=== PATIENT | female | born 1960 | race Caucasian/White ===

== ENCOUNTER → 2020-04-02 | Outpatient (CLI) | payer OTHER ==
[~2020-04-02] VITALS: Ht 170.2 cm; Wt 54.4 kg
== END ==
LOC: OPSV 09:44
DX: M05.79 Rheumatoid arthritis with rheumatoid factor of multiple sites without organ or systems involvement (principal)
CPT/HCPCS: 96365; J1602

== ENCOUNTER → 2020-05-24 | Outpatient (CLI) | payer OTHER ==
[~2020-05-24] VITALS: Ht 170.2 cm; Wt 55.3 kg
== END ==
LOC: OPSV 09:38
DX: M05.79 Rheumatoid arthritis with rheumatoid factor of multiple sites without organ or systems involvement (principal)
CPT/HCPCS: 96365; J1602

== ENCOUNTER → 2020-08-02 | Outpatient (CLI) | payer OTHER ==
[~2020-08-02] VITALS: Ht 170.2 cm; Wt 55.3 kg
== END ==
LOC: OPSV 08:31
DX: M05.79 Rheumatoid arthritis with rheumatoid factor of multiple sites without organ or systems involvement (principal)
CPT/HCPCS: 96365; J1602

== ENCOUNTER → 2020-09-27 | Outpatient (CLI) | payer OTHER ==
[~2020-09-27] VITALS: Ht 170.2 cm; Wt 55.3 kg
== END ==
LOC: OPSV 09:00
DX: M05.79 Rheumatoid arthritis with rheumatoid factor of multiple sites without organ or systems involvement (principal)
CPT/HCPCS: 96365; J1602

== ENCOUNTER → 2020-12-10 | Outpatient (CLI) | payer OTHER ==
[~2020-12-10] VITALS: Ht 170.2 cm; Wt 55.3 kg
== END ==
LOC: OPSV 11:43
DX: M05.79 Rheumatoid arthritis with rheumatoid factor of multiple sites without organ or systems involvement (principal)
CPT/HCPCS: 96365; J0129

== ENCOUNTER → 2020-12-24 | Outpatient (CLI) | payer OTHER ==
[~2020-12-24] VITALS: Ht 170.2 cm; Wt 55.3 kg
== END ==
LOC: OPSV 12:00
DX: M05.79 Rheumatoid arthritis with rheumatoid factor of multiple sites without organ or systems involvement (principal)
CPT/HCPCS: 96365; J0129

== ENCOUNTER → 2021-01-07 | Outpatient (CLI) | payer OTHER | LOC: OPSV 11:43 | DX: M05.79 Rheumatoid arthritis with rheumatoid factor of multiple sites without organ or systems involvement (principal) | CPT/HCPCS: 96365; 96375; J0129; J2930 ==

== ENCOUNTER → 2021-01-21 | Outpatient (CLI) | payer OTHER ==
[~2021-01-21] VITALS: Ht 170.2 cm; Wt 55.3 kg
== END ==
LOC: OPSV 10:32
DX: M05.79 Rheumatoid arthritis with rheumatoid factor of multiple sites without organ or systems involvement (principal)
CPT/HCPCS: G0463

== ENCOUNTER → 2021-02-04 | Outpatient (CLI) | payer OTHER ==
[~2021-02-04] VITALS: Ht 170.2 cm; Wt 55.3 kg
== END ==
LOC: OPSV 09:45
DX: M05.79 Rheumatoid arthritis with rheumatoid factor of multiple sites without organ or systems involvement (principal)
CPT/HCPCS: 96365; 96375; J0129; J2930

== ENCOUNTER → 2021-03-04 | Outpatient (CLI) | payer OTHER ==
[~2021-03-04] VITALS: Ht 170.2 cm; Wt 55.3 kg
== END ==
LOC: OPSV 09:46
DX: M05.79 Rheumatoid arthritis with rheumatoid factor of multiple sites without organ or systems involvement (principal)
CPT/HCPCS: 96365; 96375; J0129; J2930

== ENCOUNTER → 2021-04-01 | Outpatient (CLI) | payer OTHER ==
[~2021-04-01] VITALS: Ht 170.2 cm; Wt 55.3 kg
== END ==
LOC: OPSV 09:41
DX: M05.79 Rheumatoid arthritis with rheumatoid factor of multiple sites without organ or systems involvement (principal)
CPT/HCPCS: 96365; 96375; J0129; J2930

== ENCOUNTER → 2021-06-03 | Outpatient (CLI) | payer OTHER ==
[~2021-06-03] VITALS: Ht 170.2 cm; Wt 55.3 kg
== END ==
LOC: OPSV 09:44
DX: M05.79 Rheumatoid arthritis with rheumatoid factor of multiple sites without organ or systems involvement (principal)
CPT/HCPCS: 96365; 96375; J0129; J2930

== ENCOUNTER → 2021-07-01 | Outpatient (CLI) | payer OTHER ==
[~2021-07-01] VITALS: Ht 170.2 cm; Wt 55.3 kg
== END ==
LOC: OPSV 10:00
DX: M05.79 Rheumatoid arthritis with rheumatoid factor of multiple sites without organ or systems involvement (principal)
CPT/HCPCS: 96365; 96375; J0129; J2930

== ENCOUNTER → 2021-07-29 | Outpatient (CLI) | payer OTHER ==
[~2021-07-29] VITALS: Ht 170.2 cm; Wt 55.3 kg
== END ==
LOC: OPSV 13:14
DX: M05.79 Rheumatoid arthritis with rheumatoid factor of multiple sites without organ or systems involvement (principal)
CPT/HCPCS: 96365; 96375; J0129; J2930

== ENCOUNTER → 2021-08-27 | Outpatient (CLI) | payer OTHER ==
[~2021-08-27] VITALS: Ht 170.2 cm; Wt 55.3 kg
== END ==
LOC: OPSV 10:00
DX: M05.79 Rheumatoid arthritis with rheumatoid factor of multiple sites without organ or systems involvement (principal)
CPT/HCPCS: 96365; 96375; J0129; J2930

== ENCOUNTER → 2021-09-24 | Outpatient (CLI) | payer OTHER ==
[~2021-09-24] VITALS: Ht 170.2 cm; Wt 55.3 kg
== END ==
LOC: OPSV 09:58
DX: M05.79 Rheumatoid arthritis with rheumatoid factor of multiple sites without organ or systems involvement (principal)
CPT/HCPCS: 96365; 96375; J0129; J2930

== ENCOUNTER → 2021-10-22 | Outpatient (CLI) | payer OTHER ==
[~2021-10-22] VITALS: Ht 170.2 cm; Wt 55.3 kg
== END ==
LOC: OPSV 09:24
DX: M05.79 Rheumatoid arthritis with rheumatoid factor of multiple sites without organ or systems involvement (principal)
CPT/HCPCS: 96365; 96375; J0129; J2930

== ENCOUNTER → 2021-11-19 | Outpatient (CLI) | payer OTHER ==
[~2021-11-19] VITALS: Ht 170.2 cm; Wt 55.3 kg
== END ==
LOC: OPSV 09:48
DX: M05.79 Rheumatoid arthritis with rheumatoid factor of multiple sites without organ or systems involvement (principal)
CPT/HCPCS: 96365; 96375; J0129; J2930